=== PATIENT | male | born 1980 | race Caucasian/White ===

== ENCOUNTER 2021-04-14 08:09 | Emergency (ER) | payer BC ==
[2021-04-14 08:16] VITALS: BP 149/97; PULSE 78; TEMP 99.1; BMI 31.6
== END 2021-04-14 08:42 | disposition home or self-care (01) ==
LOC: FER 08:09
DX: S61.219A Laceration without foreign body of unspecified finger without damage to nail, initial encounter (principal); W26.8XXA Contact with other sharp object(s), not elsewhere classified, initial encounter
CPT/HCPCS: 99281-25

== ENCOUNTER 2023-10-16 04:06 | Day surgery (SDC) | payer BC ==
[2023-10-11 13:03] VITALS: BMI 28.6
[2023-10-16] MEDS ORDERED: LIDOCAINE HCL 1%, 10 MG/ML (20ML VIAL) ONE (09:38)
[2023-10-16] MEDS ORDERED: BUPIVACAINE HCL/PF 0.5% (5MG/ML) 10 ML VIAL ONE (09:38)
[2023-10-16] MEDS ORDERED: oxyCODONE HCL 5 MG TABLET PO PRN (09:41)
[2023-10-16] MEDS ORDERED: PROMETHAZINE HCL 25 MG/1 ML VIAL IVPB PRN (09:41)
[2023-10-16] MEDS ORDERED: ONDANSETRON 4 MG/2 ML VIAL IVPUSH PRN (09:41)
[2023-10-16] MEDS ORDERED: LACTATED RINGERS SOLUTION 1,000 ML IV SCH (09:45)
[2023-10-16] MEDS ORDERED: GLYCOPYRROLATE 0.2 MG/1 ML VIAL ONE (09:56)
[2023-10-16] MEDS ORDERED: MIDAZOLAM HCL 2 MG/2 ML SINGLE DOSE VIAL ONE ×2 (09:56→10:31)
[2023-10-16] MEDS ORDERED: FENTANYL CITRATE/PF 50 MCG/ML VIAL ONE (09:56)
[2023-10-16] MEDS ORDERED: HEPARIN NA (PORCINE) 5,000 UNITS/ML 1ML VIAL ONE (10:20)
[2023-10-16] MEDS ORDERED: CLINDAMYCIN PHOSPHATE 600 MG/4 ML VIAL ONE (10:20)
[2023-10-16] MEDS ORDERED: METHYLENE BLUE 50 MG/10 ML AMPUL ONE (10:20)
[2023-10-16] MEDS: CLINDAMYCIN 900 MG PREMIX BAG IVPB ONE (10:30)
[2023-10-16] MEDS ORDERED: PROPOFOL 20 ML ONE (10:37)
[2023-10-16] MEDS: BUPIVACAINE HCL/PF 0.5% (5 MG/ML) 30 ML VIAL IJ ONE ×2 (10:46)
[2023-10-16 13:55] VITALS: TEMP 98
[2023-10-16 18:19] VITALS: BP 128/75; PULSE 72; RESP 20
== END 2023-10-16 16:40 | disposition home or self-care (01) ==
LOC: JASU-SURG 04:06
PROVIDERS: ATTEND Surgery
PROC: 0JB90ZZ Excision of Buttock Subcutaneous Tissue and Fascia, Open Approach (ICD-10-PCS; principal; 2023-10-16 10:30)
DX: L05.91 Pilonidal cyst without abscess (principal)
CPT/HCPCS: 86850; 86900; 86901; 88304-TC; 94760; J1644; Q9968